=== PATIENT | male | born 1955 | race Caucasian/White ===

== ENCOUNTER 2018-08-10 14:15 | Outpatient (CLI) | payer BC, SELFPAY ==
[2018-08-10 15:27] LABS: CREATININE 1.06 mg/dL (0.70-1.30); Cholesterol 234 mg/dL (50-200); HDL Cholesterol 33 mg/dL (40-60); LDL CHOLESTEROL 171 mg/dL (<100); Potassium 4.2 mmol/L (3.5-5.1); Triglyceride 163 mg/dL (30-150)
[2018-08-14 15:15] LABS: PTH-Related Peptide 0.2 pmol/L (<2.0)
== END 2018-08-10 14:35 ==
PROVIDERS: PCP Family Medicine; Visit Provider Family Medicine
DX: I97.3 Postprocedural hypertension (principal); Z90.5 Acquired absence of kidney; E78.5 Hyperlipidemia, unspecified; E21.3 Hyperparathyroidism, unspecified
CPT/HCPCS: 36415; 80061; 83721; 82397; 82565; 84132

== ENCOUNTER 2019-08-14 01:45 | Outpatient (CLI) | payer BC, SELFPAY ==
[2019-08-14 12:07] LABS: BUN 19 mg/dL (7-18); CREATININE 1.13 mg/dL (0.70-1.30); Calcium 9.6 mg/dL (8.5-10.1); Calculated LDL 168 mg/dL; Chloride 104 mmol/L (98-107); Cholesterol 229 mg/dL (50-200); Glucose 86 mg/dL (70-100); HDL Cholesterol 37 mg/dL (40-60); Potassium 4.5 mmol/L (3.5-5.1); Sodium 140 mmol/L (136-145); Triglyceride 121 mg/dL (30-150)
[2019-08-15 09:54] LABS: PSA, Screening 1.7 ng/ml (0-4.5)
[2019-08-15 11:15] LABS: Parathyroid Hormone,Intact 173 pg/ml (19-88)
[2019-08-19 07:46] LABS: Vitamin D 25 Total 26.6 ng/ml (30-100)
== END 2019-08-14 02:05 ==
PROVIDERS: PCP Family Medicine; Visit Provider Family Medicine
DX: E21.3 Hyperparathyroidism, unspecified (principal); Z00.00 Encounter for general adult medical examination without abnormal findings; Z12.5 Encounter for screening for malignant neoplasm of prostate; E78.5 Hyperlipidemia, unspecified
CPT/HCPCS: 36415; 80048; 80061; 82306; 84153; 82040; 82310; 83970

== ENCOUNTER 2020-08-07 02:01 | Outpatient (CLI) | payer BC, SELFPAY ==
[2020-08-07 13:25] LABS: CREATININE 1.01 mg/dL (0.70-1.30); Calculated LDL 171 mg/dL (<100); Cholesterol 231 mg/dL (<200); HDL Cholesterol 41 mg/dL (40-60); Potassium 4.2 mmol/L (3.5-5.1); Triglyceride 96 mg/dL (<150)
[2020-08-07 13:37] LABS: Uric Acid 5.6 mg/dL (3.5-7.2)
== END 2020-08-07 02:21 ==
PROVIDERS: PCP Family Medicine; Visit Provider Family Medicine
DX: I10 Essential (primary) hypertension (principal); E78.5 Hyperlipidemia, unspecified; M10.9 Gout, unspecified
CPT/HCPCS: 36415; 80061; 82565; 84132; 84550

== ENCOUNTER 2021-05-15 09:52 | Inpatient (IN) | payer BC, SELFPAY ==
[2021-05-15] VITALS (93 sets, daily range): BP systolic 81–139; BP diastolic 52–102; PULSE 55–140; RESP 11–35; TEMP 36.5–36.9; O2SAT 89–100
--- NOTE | 2021-05-15 09:45 | RT.EKG_ITS ---
APPROVED REPORT Exam: Resting ECG Reason for Exam: chest pain Patient Location: E HR:129 bpm ECG Measurements Heart Rate 129 AXIS TX 117 P 228 QRSd 89 QRS -71 QT 323 T 26 QTc 474 Conclusion Sinus or ectopic atrial tachycardia...P axis (-45,135), rate> 99 Left anterior fascicular block...axis(240,-40), init forces inf Repol abnrm suggests ischemia, inferior leads...ST dep, T neg, II III aVF
[2021-05-15 10:08] LABS: Abs Immature Grans 0.02 10^3/uL (0.0-0.06); Absolute Basophil Count 0.06 10^3/uL (0.0-0.2); Absolute Eosinophil Count 0.07 10^3/uL (0.0-0.7); Absolute Lymphocyte Count 1.59 10^3/uL (1.2-3.4); Absolute Monocyte Count 0.68 10^3/uL (0.1-0.8); Absolute Neutrophil Count 5.34 10^3/uL (1.2-6.7); Basophils % 0.8; Eosinophils % 0.9; HCT 47.7 % (40.0-50.0); HGB 15.4 g/dL (13.5-17.5); Immature Grans % 0.3; Lymphocytes % 20.5; MCH 28.8 pg (27.0-33.0); MCHC 32.3 % (32.0-36.0); MCV 89.3 fL (80-95); MPV 9.8 fL (8.0-11.0); Monocytes % 8.8; Neutrophils % 68.7; Nucleated RBC 0 %; Platelet Count 282 10^3/uL (130-400); RBC 5.34 10^6/uL (4.36-5.78); RDW 13.2 % (11.8-14.1); RDW-SD 43.1 fL; WBC 7.76 10^3/uL (4.4-10.8)
[2021-05-15 10:34] LABS: ALT 23 U/L (16-63); AST 14 U/L (15-37); Albumin 4.6 g/dL (3.4-5.0); Alkaline Phosphatase 58 U/L (46-116); Anion Gap 11.3 mmol/L (3-11); BUN 20 mg/dL (7-18); Bilirubin, Total 0.6 mg/dL (0.2-1.0); CO2 25.7 mmol/L (21.0-32.0); CREATININE 1.1 mg/dL (0.70-1.30); Calcium 10.3 mg/dL (8.5-10.1); Chloride 106 mmol/L (98-107); Glucose 104 mg/dL (74-106); Magnesium 2.1 mg/dL (1.8-2.4); Potassium 3.9 mmol/L (3.5-5.1); Sodium 143 mmol/L (136-145); TSH (W/Ref FT4) 1.25 uIU/mL (0.36-3.74); Total Protein 8.3 g/dL (6.4-8.2); Troponin I < 0.05 ng/mL (<0.06)
[2021-05-15] MEDS: dilTIAZem 25 MG/5 ML VIAL 15 MG IVP (10:40)
[2021-05-15 10:41] LABS: D-Dimer 193 ng/mlFEU (<500)
[2021-05-15] MEDS: Normal Saline Flush 10 ML SYR IVP ×2 (10:41→22:28)
--- NOTE | 2021-05-15 10:43 | W.ED.GENAD ---
Discharge Plan Disposition Patient Disposition: [facility] INPATIENT Condition: Serious Discharge Details Chief Complaint: Palpitatns Clinical Impression: Atrial fibrillation with RVR, Bradycardia Primary Care Provider: Elkin Gu ED Provider: Fred Perkins Home Meds and New Rx's Prescriptions: No Action sildenafil 100 mg tablet 50 - 100 mg PO DAILY PRN (Reason: sexual activity) Qty: 90 RF: 3 diphenhydramine-acetaminophen [Tylenol PM Extra Strength] 1 EACH tablet 1 tab PO PRN RF: 0 One Daily For Men 1 EACH tablet 1 ea PO DAILY RF: 0 Shingrix Adjuvant Component-PF Suspension 0.5 ml IM DAILY Qty: 0.5 RF: 1 losartan 25 mg tablet 25 mg PO DAILY Qty: 90 RF: 3 allopurinol 100 mg tablet 200 mg PO DAILY Qty: 180 RF: 3 alendronate 70 mg tablet 70 mg PO QWEEK Qty: 12 RF: 3 ciprofloxacin HCl [Cipro] 500 mg tablet 500 mg PO BID Qty: 20 RF: 0 metronidazole 500 mg tablet 500 mg PO TID Qty: 30 RF: 0 psyllium husk 0.52 GM capsule 5 gm PO DAILY RF: 0 metoprolol tartrate 25 mg tablet 25 mg PO DAILY RF: 0 Medical Decision Making 1053?- 65-year-old male with history of atrial fibrillation, here with palpitations. Patient is tachycardic and normotensive. Saturating well in no respiratory distress. I reviewed heart monitor in the room and interpreted as follows: irregular narrow complex tachycardia, atrial fib/flutter EKG was reviewed and interpreted by me: Please see report, a flutter versus A. fib with rapid ventricular response [address] depression noted laterally. Consider ACS. Plan to obtain troponin. Consider electrolyte abnormalities and thyroid dysfunction as etiology for arrhythmia. I am concerned with episodes of bradycardia the patient noted, specifically feeling like his heart was on a roller coaster last night. This raises suspicion for sick sinus syndrome. Plan to treat with diltiazem IV push and then follow with IV infusion. Patient will require hospitalization for continued cardiac monitoring and medication adjustment. --Patient reassessed after diltiazem 15 mg bolus and heart rate improved in the 80s to 90s. BP remained stable heart rate started to increase while on diltiazem 5 mg/h infusion. I titrated this up to 7.5. Reviewed labs. Nondiagnostic. D-dimer negative. Troponin negative. I called and spoke with the patient's loom cleaner in [place], Dr. Gomes, he agrees with concern for potential sick sinus syndrome and recommends monitoring. I obtained and reviewed outside hospital records including discharge summary with consultation notes from [facility] discharge date 11/02/2020: Cardiology note does state that patient was originally on Cardizem infusion as well as metoprolol and digoxin during initial A. fib episode. I called and spoke with Dr. Montgomery discussed ED presentation course. He will admit the patient to the ICU. 1200--all results and treatment plan discussed with the patient HPI General Mode of arrival: ambulatory. Date/Time Provider Initiated Documentation: 05/15/21 09:54. Limitations to Documentation: no limitations. Information obtained by: patient. HPI Narrative: 65-year-old male with history of diverticulitis status post partial colectomy and subsequent reanastomosis earlier this spring, history of atrial fibrillation, recently diagnosed during hospitalization for colectomy, treated and typically well controlled with metoprolol 25 mg daily, presents today with chief complaint of palpitations. Patient notes last night he went out to dinner and had a single alcoholic beverage, he took his metoprolol last night as prescribed and shortly thereafter had episode of bradycardia. He states he checked his heart rate with pulse oximeter and it was in the 40s. He then noted that his heart rate became extremely fast with palpitations. He states it felt like his heart was on a roller coaster during this time. Since last night he has had persistently elevated heart rate in the 130s at home. He has associated mild shortness of breath and mild dizziness. No chest pain. No associated leg swelling or calf pain. He has had recent long distance travel. Patient notes that over the past few months since being diagnosed with atrial fibrillation he has been on consistent dosing of metoprolol. He has had a few other episodes where his heart rate was slow and also some episodes of palpitations. ?Typically the symptoms did not last more than an hour or so Patient is taking aspirin 81 mg daily as prescribed. No other anticoagulant. Related Data Home Medications Medication Instructions Recorded Confirmed One Daily For Men 1 ea PO DAILY 03/21/13 05/15/21 diphenhydramine-acetaminophen 1 tab PO PRN 03/21/13 05/15/21 [Tylenol PM Extra Strength] psyllium husk 5 gm PO DAILY 03/14/14 05/15/21 sildenafil 100 mg tablet 50 - 100 mg PO DAILY PRN #90 tab 08/13/19 05/15/21 adjuvant AS01B (PF)vial 1 of 2 0.5 ml IM DAILY #0.5 ml 11/25/19 10/13/20 losartan 25 mg tablet 25 mg PO DAILY #90 tab 07/10/20 10/13/20 allopurinol 100 mg tablet 200 mg PO DAILY #180 tab 07/14/20 05/15/21 alendronate 70 mg tablet 70 mg PO QWEEK #12 tab 08/25/20 05/15/21 ciprofloxacin HCl 500 mg tablet 500 mg PO BID #20 tab 10/27/20 metronidazole 500 mg tablet 500 mg PO TID #30 tab 10/27/20 metoprolol tartrate 25 mg PO DAILY 05/15/21 05/15/21 Previous Rx's Medication Instructions Recorded sildenafil 100 mg tablet 50 - 100 mg PO DAILY PRN #90 tab 08/13/19 adjuvant AS01B (PF)vial 1 of 2 0.5 ml IM DAILY #0.5 ml 11/25/19 losartan 25 mg tablet 25 mg PO DAILY #90 tab 07/10/20 allopurinol 100 mg tablet 200 mg PO DAILY #180 tab 07/14/20 alendronate 70 mg tablet 70 mg PO QWEEK #12 tab 08/25/20 ciprofloxacin HCl 500 mg tablet 500 mg PO BID #20 tab 10/27/20 metronidazole 500 mg tablet 500 mg PO TID #30 tab 10/27/20 Allergies Allergy/AdvReac Type Severity Reaction Status Date / Time [facility] Allergy Unknown Uncoded 05/15/21 10:01 General Stated Complaint: Palpitatns MARY: 2 Review of Systems All systems reviewed & are unremarkable except as noted in HPI and below Constitutional Constitutional: Denies fever(s) Cardiovascular Cardiovascular: Denies chest pain, Reports rapid heart rate, Reports irregular heart rhythm and Reports dyspnea Respiratory Respiratory: Reports dyspnea Gastrointestinal Gastrointestinal: Reports other (Intermittent constipation) [facility] Medical History (Updated 05/15/21 @ 12:09 by Fred Perkins MD) Atrial fibrillation Diverticulitis Diverticulosis of large intestine without hemorrhage (07/18/17) c-scope 2013 History of smoking for 6-10 years Hypertension after donor nephrectomy requiring medication Tinnitus since age 19 Surgical History (Updated 05/15/21 @ 10:51 by Fred Perkins MD) History of partial colectomy Repair of inguinal hernia 07/26/10; left 07/14-right Family History Mother , age 67 Essential hypertension Lung cancer Father , age 79 Essential hypertension Hyperlipidemia Lung cancer Sister No problems noted. Maternal Grandfather , age 81 Essential hypertension Alzheimer disease Heart disease Hyperlipidemia Paternal Grandfather , age 70 Neoplasm LUNG Maternal Grandmother , age 83 Essential hypertension Heart disease Hyperlipidemia Lung cancer Paternal Grandmother , age 93 No problems noted. Son No problems noted. Daughter No problems noted. Social History Smoking/Tobacco Use Status: Former Tobacco Use Smoking risk assessment performed?: Yes Alcohol Intake: current Alcohol Intake frequency: a few times a week Drug use: Rarely Substance use type: does not use and marijuana Caregiver/Support person: Yes Household members: spouse Housing: house Communication Needs: Hard of Hearing Do you need help understanding health information?: Never current occupation: MARKETING Pets and animals: Yes Pets and animals: dog(s) Sexually active: Yes Do you think of yourself as: straight/heterosexual Current gender identity: male What is your relationship status?: How often do you talk on the phone with friends or family?: three or more times per week How often do you get together with friends or relatives?: twice per week How often do you attend druze or buddhist services?: 4 or more times per year Do you belong to any clubs or organized social groups?: yes Panel score (0-1 are the most socially isolated patients): 4 What type of physical activity do you participate in: other Details: core, weights, aerobic Duration: 60-90 minutes/day Frequency: 3-4 times per week Radha/Congregation: Gnosticism Special radha needs: No Seatbelt use: always Drive intox or ride w/intox national dedicated truck driver: No Do you feel safe at home: Yes Do you feel safe in your relationship?: Yes Exam Const General: cooperative and no acute distress HENMT Mouth: moist mucous membranes Eyes Conjunctivae: normal conjunctivae Sclera: normal sclerae EOM: EOM intact bilaterally Neck Neck: trachea midline and supple Resp Auscultation: clear to auscultation bilaterally, no rales, no rhonchi and no wheezes Cardio Rate: regular rate and not tachycardic Rhythm: regular rhythm GI Inspection: non-distended and other (Well-healed colectomy scar and ostomy scar) Skin General skin exam: no rashes or lesions noted Neuro General: patient alert, patient awake, patient oriented x3 and tone normal Extrem General: no calf tenderness and no edema Psych Appearance: grossly normal Mental Status: mental status grossly normal Speech and Movement: speech and movement normal Course Vital Signs Vital signs: Vital Signs Temperature 36.6 C 05/15/21 09:56 Pulse 129 H 05/15/21 09:56 Respiratory Rate 16 05/15/21 09:56 Blood Pressure 139/102 H 05/15/21 09:56 Pulse Oximetry 98 05/15/21 09:56 Temperature 36.6 C 05/15/21 09:56 Temperature Source Skin 05/15/21 09:56 Pulse 127 H 05/15/21 10:40 Pulse 133 H 05/15/21 10:03 Respiratory Rate 15 05/15/21 10:03 Respiratory Effort Non-Labored 05/15/21 10:05 Blood Pressure 115/98 H 05/15/21 10:40 Blood Pressure Mean 100 05/15/21 10:03 Blood Pressure Position Supine 05/15/21 09:56 Pulse Oximetry 100 05/15/21 10:03 Oxygen Delivery Method Room Air 05/15/21 09:56 Oxygen Flow Rate 0 05/15/21 09:56 Pain Level 0 05/15/21 10:05 Lab/Test Results Lab/Test Results: Laboratory Tests Range/Units 05/15/21 05/15/21 05/15/21 10:00 10:00 10:00 WBC (4.4-10.8) 10^3/uL 7.76 RBC (4.36-5.78) 10^6/uL 5.34 Hgb (13.5-17.5) g/dL 15.4 Hct (40.0-50.0) % 47.7 MCV (80-95) fL 89.3 MCH (27.0-33.0) pg 28.8 MCHC (32.0-36.0) % 32.3 RDW (11.8-14.1) % 13.2 Plt Count (130-400) 10^3/uL 282 MPV (8.0-11.0) fL 9.8 Immature Gran % 0.3 Neutrophils % 68.7 Lymphocytes % 20.5 Monocytes % 8.8 Eosinophils % 0.9 Basophils % 0.8 Nucleated RBC % % 0 Absolute Neutrophils (1.2-6.7) 10^3/uL 5.34 Absolute Lymphocytes (1.2-3.4) 10^3/uL 1.59 Absolute Monocytes (0.1-0.8) 10^3/uL 0.68 Absolute Eosinophils (0.0-0.7) 10^3/uL 0.07 Absolute Basophils (0.0-0.2) 10^3/uL 0.06 D-Dimer (<500) ng/mlFEU 193 Sodium (136-145) mmol/L 143 Potassium (3.5-5.1) mmol/L 3.9 Chloride (98-107) mmol/L 106 Carbon Dioxide (21.0-32.0) mmol/L 25.7 Anion Gap (3-11) mmol/L 11.3 H BUN (7-18) mg/dL 20 H Creatinine (0.70-1.30) mg/dL 1.1 Estimated GFR/1.73 m2 (mL/min/1.73m2) >= 60.00 Glucose (74-106) mg/dL 104 Calcium (8.5-10.1) mg/dL 10.3 H Magnesium (1.8-2.4) mg/dL 2.1 Total Bilirubin (0.2-1.0) mg/dL 0.6 AST (15-37) U/L 14 L ALT (16-63) U/L 23 Alkaline Phosphatase (46-116) U/L 58 Troponin I (<0.06) ng/mL < 0.05 Total Protein (6.4-8.2) g/dL 8.3 H Albumin (3.4-5.0) g/dL 4.6 TSH (0.36-3.74) uIU/mL 1.25 Critical Care Time Critical Care Time Critical Care Time: Yes Total Critical Care Time: 40 Attestation: I spent greater than 40 minutes addressing this patient's immediate life threats -A. fib with AVR. Please see MDM section of note. This time was spent engaged in work directly related to the patient's care, exclusive of separate procedures, and failure to initiate these interventions would have likely resulted in clinically significant or life threatening deterioration in the patient's condition.
[2021-05-15] MEDS: dilTIAZem 125 MG in Normal Saline 100 ML IV (10:53)
[2021-05-15 11:10] LABS: Source Nasal/Nares
[2021-05-15 12:11] LABS: COVID-19 PCR Negative (Negative)
--- NOTE | 2021-05-15 13:00 | NUR.NOTE ---
Nursing Note:Information was obtained and sent to ICU from: [facility] [place] Dr. Gomes [phone] Jen Campa
[2021-05-15 13:05] LABS: Troponin I < 0.05 ng/mL (<0.06)
[2021-05-15] MEDS: Enoxaparin 40 MG/0.4 ML SYR SC (13:59)
[2021-05-15] MEDS: Aspirin 81 MG CHEW 324 MG CH (14:00)
--- NOTE | 2021-05-15 14:35 | W.PM.HP.N ---
Date of service: 05/15/21 Time of Service: 14:36 Assessment and Plan Assessment and plan (1) Atrial fibrillation with RVR: Status: Acute Assessment and plan: patient w/ prior PAF associated w/ his hemicolectomy, however, he says that it reoccurred one other time after his surgery and was evaluated by his crimp setter in [place], Dr. Ramachandran, in [place], [place]. He underwent stress MPI and echocardiogram but never had a PSG to evaluate for SAQIB. He was put on lopressor but not anticoagulated. I performed a [id number] score of 1 which is in the intermediate risk category w/ 1.3% annual risk of CVA. I explained this along w/ the physiologic and anataomical explainations for afib. I discussed w/ him in detail goals of rate vs rhythm control and anticoagulation goals. For now we will work on rate control w/ oral and iv diltiazem and put him on enoxaparin for DVT prophylaxis and oral ASA but will continue to hold discussions of predatory animal exterminator anticoagulation. I think that his PAF is likely to reoccur d/t his untreated SAQIB and therefore detention anticoagulation would be favored. He has no CHF or DM although he has HTN but he has no PVD and no hx of TIA/CVA. (2) Essential hypertension: Status: Acute Assessment and plan: will change his metoprolol to diltiazem. Will start on low dose oral diltiazem while he is on the iv diltiazem but titrate the dose upward. goal is for resting HR of 60 to 80 bpm and HR of no higher than 110's w/ activity. Review of Systems Constitutional Constitutional: Reports snoring (patient states that his has noted episodes of apnea during his sleep) Eyes Eyes: Reports system reviewed and no additional complaints, except as documented ENT Ears, Nose, Mouth, and Throat: Reports hearing loss Cardiovascular Cardiovascular: Reports chest pain, Denies chest pain with activity, Denies syncope, Reports rapid heart rate, Reports irregular heart rhythm, Reports lightheadedness, Denies dyspnea and Denies dyspnea on exertion Respiratory Respiratory: Denies dyspnea, Denies dyspnea on exertion and Reports snoring (patient states that his has noted episodes of apnea during his sleep) Gastrointestinal Gastrointestinal: Reports system reviewed and no additional complaints, except as documented Genitourinary Genitourinary: Reports system reviewed and no additional complaints, except as documented Musculoskeletal Musculoskeletal: Reports system reviewed and no additional complaints, except as documented Integumentary/Breasts Skin/Breast: Reports system reviewed and no additional complaints, except as documented Neurologic Neurologic: Reports system reviewed and no additional complaints, except as documented and Denies syncope Psychiatric Psychiatric: Reports system reviewed and no additional complaints, except as documented Endocrine Endocrine: Reports system reviewed and no additional complaints, except as documented Hematologic/Lymphatic Hematologic/Lymphatic: Reports system reviewed and no additional complaints, except as documented Allergic/Immunologic Allergic/Immunologic: Reports system reviewed and no additional complaints, except as documented [facility] Medical History (Updated 05/15/21 @ 15:13 by Nico Montgomery) Atrial fibrillation (~10/2020) noted after hemicolectomy; evaluated by crimp setter, Dr. Ramachandran in [place], [place], October 2020; had stress MPI and echocardiogram Diverticulitis Diverticulosis of large intestine without hemorrhage (07/18/17) c-scope 2013 Essential hypertension (~2005) History of smoking for 6-10 years Kidney stone (03/21/13) Tinnitus since age 19 Surgical History (Updated 05/15/21 @ 15:04 by Nico Montgomery) H/O colonoscopy (~09/14/14) 09/14/2014, Dr. Mckay Arroyo, pandiverticulosis and grade II hemorrhoids; 09/27/2010, Dr. Euceda; chandler-diverticulosis, multiple colon polyps, grade I hemorrhoids History of partial colectomy (~10/2020) [place], [place]; Dr. Thad Melvin Repair of inguinal hernia 07/26/10; left 07/14-right Status post inguinal hernia repair Family History Mother , age 67 Essential hypertension Lung cancer Father , age 79 Essential hypertension Hyperlipidemia Lung cancer Sister No problems noted. Maternal Grandfather , age 81 Essential hypertension Alzheimer disease Heart disease Hyperlipidemia Paternal Grandfather , age 70 Neoplasm LUNG Maternal Grandmother , age 83 Essential hypertension Heart disease Hyperlipidemia Lung cancer Paternal Grandmother , age 93 No problems noted. Son No problems noted. Daughter No problems noted. Social History (Updated 05/15/21 @ 14:57 by Nico Montgomery) Smoking/Tobacco Use Status: Former Tobacco Use Quit Date: 11/06/12 Tobacco: How many years used: 20 Smoking risk assessment performed?: Yes Alcohol Intake: current Alcohol Intake frequency: a few times a week Drug use: Rarely Substance use type: does not use and marijuana Caregiver/Support person: Yes Household members: spouse Housing: house Communication Needs: Hard of Hearing Do you need help understanding health information?: Never current occupation: MARKETING Pets and animals: Yes Pets and animals: dog(s) Sexually active: Yes Do you think of yourself as: straight/heterosexual Current gender identity: male What is your relationship status?: How often do you talk on the phone with friends or family?: three or more times per week How often do you get together with friends or relatives?: twice per week How often do you attend scientology or shinto services?: 4 or more times per year Do you belong to any clubs or organized social groups?: yes Panel score (0-1 are the most socially isolated patients): 4 What type of physical activity do you participate in: other Details: core, weights, aerobic Duration: 60-90 minutes/day Frequency: 3-4 times per week Radha/Latter Day: Sabianism Special radha needs: No Seatbelt use: always Drive intox or ride w/intox electric train driver: No Do you feel safe at home: Yes Do you feel safe in your relationship?: Yes Meds Allergies and Home Medications Allergies Allergy/AdvReac Type Severity Reaction Status Date / Time [facility] Allergy Unknown Uncoded 05/15/21 10:01 Home Medications Medication Instructions Recorded Confirmed Type One Daily For Men 1 ea PO DAILY 03/21/13 05/15/21 History diphenhydramine-acetaminophen 1 tab PO PRN 03/21/13 05/15/21 History [Tylenol PM Extra Strength] psyllium husk 5 gm PO DAILY 03/14/14 05/15/21 History sildenafil 100 mg tablet 50 - 100 mg PO DAILY PRN #90 tab 08/13/19 05/15/21 Rx adjuvant AS01B (PF)vial 1 of 2 0.5 ml IM DAILY #0.5 ml 11/25/19 10/13/20 Rx losartan 25 mg tablet 25 mg PO DAILY #90 tab 07/10/20 10/13/20 Rx allopurinol 100 mg tablet 200 mg PO DAILY #180 tab 07/14/20 05/15/21 Rx alendronate 70 mg tablet 70 mg PO QWEEK #12 tab 08/25/20 05/15/21 Rx ciprofloxacin HCl 500 mg tablet 500 mg PO BID #20 tab 10/27/20 Rx metronidazole 500 mg tablet 500 mg PO TID #30 tab 10/27/20 Rx metoprolol tartrate 25 mg PO DAILY 05/15/21 05/15/21 History Exam Const General: cooperative, healthy appearing, comfortable, no acute distress, well developed and well groomed Nutritional Appearance: average body habitus [facility] Head: normal to inspection, no palpable skull fracture, normocephalic and atraumatic Ears: hearing grossly normal bilaterally General nose exam: external nose normal Face and sinus: normal facial exam Mouth: oral mucosae normal Eyes General: appearance normal, both eyes and all related structures Visual Reynaga: normal visual reynaga by confrontation Alignment and Position: alignment normal Periorbital: periorbital findings normal Eyelids: eyelids normal Conjunctivae: conjunctivae normal Sclera: sclerae normal Cornea: corneas normal Pupils: PERRL EOM: EOM intact bilaterally Neck Neck: normal visual inspection, full ROM, no lymphadenopathy, trachea midline and supple Thyroid: thyroid normal Carotids: normal carotid upstroke Lymphatic: no lymphadenopathy noted Chest Chest: normal inspection of the chest Resp Effort & Inspection: normal respiratory effort and able to speak in complete sentences Auscultation: clear to auscultation bilaterally Cardio Jugular venous pressure: no JVD Palpation: normal PMI Rate: regular rate Rhythm: regular rhythm Heart Sounds: S1 normal Pulses: brachial pulses present, radial pulses present, dorsalis pedis present and normal peripheral pulses GI Inspection: scar (midline laparotomy scar well healed) Palpation: soft and no hepatosplenomegaly Percussion: normal to percussion Auscultation: normal bowel sounds Back/Spine/Pelvis Back: no CVA tenderness Cervical Spine: normal cervical lordosis Thoracic/Lumbar Spine: thoracic and lumbar spine normal to inspection Skin General skin exam: no rashes or lesions noted Neuro General: patient alert, patient awake and patient oriented x3 Cranial Nerves: CN's II-XI intact bilaterally Cognition: normal cognition Speech: speech normal Motor: muscle tone normal throughout and strength 5/5 throughout Sensory Exam: no sensory deficits noted Extrem General: normal to inspection, full ROM, capillary refill normal, no joint enlargement, no clubbing, cyanosis or edema, no pedal edema and no calf tenderness Psych Appearance: grossly normal Mental Status: mental status grossly normal Speech and Movement: speech and movement normal Mood: congruent mood Affect: normal affect Attitude: cooperative Thought Process: normal Thought Content: normal Insight: insight good Judgment: judgment good Results Labs Result diagrams: 05/15/21 10:00 05/15/21 10:00 Labs: Laboratory Results - last 24 hr 05/15/21 05/15/21 05/15/21 10:00 10:00 10:00 WBC 7.76 RBC 5.34 Hgb 15.4 Hct 47.7 MCV 89.3 MCH 28.8 MCHC 32.3 RDW 13.2 Plt Count 282 MPV 9.8 Immature Gran % 0.3 Neutrophils % 68.7 Lymphocytes % 20.5 Monocytes % 8.8 Eosinophils % 0.9 Basophils % 0.8 Nucleated RBC % 0 Absolute Neutrophils 5.34 Absolute Lymphocytes 1.59 Absolute Monocytes 0.68 Absolute Eosinophils 0.07 Absolute Basophils 0.06 D-Dimer 193 Sodium 143 Potassium 3.9 Chloride 106 Carbon Dioxide 25.7 Anion Gap 11.3 H BUN 20 H Creatinine 1.1 Estimated GFR/1.73 m2 >= 60.00 Glucose 104 Calcium 10.3 H Magnesium 2.1 Total Bilirubin 0.6 AST 14 L ALT 23 Alkaline Phosphatase 58 Troponin I < 0.05 Total Protein 8.3 H Albumin 4.6 TSH 1.25 COVID-19 Source SARS-CoV-2 (PCR) 05/15/21 05/15/21 11:08 12:45 WBC RBC Hgb Hct MCV MCH MCHC RDW Plt Count MPV Immature Gran % Neutrophils % Lymphocytes % Monocytes % Eosinophils % Basophils % Nucleated RBC % Absolute Neutrophils Absolute Lymphocytes Absolute Monocytes Absolute Eosinophils Absolute Basophils D-Dimer Sodium Potassium Chloride Carbon Dioxide Anion Gap BUN Creatinine Estimated GFR/1.73 m2 Glucose Calcium Magnesium Total Bilirubin AST ALT Alkaline Phosphatase Troponin I < 0.05 Total Protein Albumin TSH COVID-19 Source Nasal/Nares SARS-CoV-2 (PCR) Negative Last Vital Signs Temp 36.9 C 05/15/21 13:08 Pulse 136 H 05/15/21 14:01 Resp 19 05/15/21 14:01 BP 111/87 05/15/21 13:45 Pulse Ox 98 05/15/21 14:01
[2021-05-15] MEDS: dilTIAZem 30 MG TAB PO ×2 (15:50→20:16)
[2021-05-15 16:26] LABS: Troponin I < 0.05 ng/mL (<0.06)
[2021-05-15] MEDS: Pantoprazole 20 MG TABCR PO (22:00)
[2021-05-16] VITALS (50 sets, daily range): BP systolic 94–129; BP diastolic 65–84; PULSE 61–84; RESP 12–53; TEMP 36.6; O2SAT 93–99
--- NOTE | 2021-05-16 03:28 | NUR.NOTE ---
0300 Pt OOB to try and move bowels. no results. States he will probably go in the morning. states it feels good to stand up. Ambulated in room for a ffew minutes. No increase in HR with activity. HR 63 BP 104,76. No dizziness noted. States he feels great.
[2021-05-16 06:46] LABS: Hemoglobin A1C 4.9 % (<5.7)
[2021-05-16 06:50] LABS: Calculated LDL 152 mg/dL (<100); Cholesterol 205 mg/dL (<200); HDL Cholesterol 36 mg/dL (40-60); Triglyceride 86 mg/dL (<150)
[2021-05-16] MEDS: Aspirin E.C. 81 MG TABEC PO (08:55)
[2021-05-16] MEDS: dilTIAZem CD 120 MG CAPCR PO (08:55)
[2021-05-16] MEDS: Psyllium PKT 1 EACH PO (08:56)
[2021-05-16] MEDS: Allopurinol 100 MG TAB 200 MG PO (08:56)
--- NOTE | 2021-05-16 10:35 | W.PM.DS.N ---
Date of service: 05/16/21 Time of Service: 10:35 DS: Diagnosis Discharge Diagnosis (1) Atrial fibrillation with RVR: Status: Acute Asessment and Plan: stop lopressor; start diltiazem CD 120 mg daily. cont. ASA 81 mg daily. Patient is encouraged to discuss residential anticoagulation strategy w/ his PCP and w/ Dr. Parikh or Dr. Martini, garment sewer hand from [facility]. 30 day cardiac event recorder was applied at discharge to assess stability of his rhythm. Patient's already had prior ischemic workup by his garment sewer hand in [place]. TSH was checked this admission and was normal at 1.25. (2) Essential hypertension: Status: Acute Asessment and Plan: lopressor has been changed to diltiazem CD. Patient reported that he no longer takes losartan and therefore this has been taken off his home medication list. (3) Obstructive sleep apnea: Status: Suspected Asessment and Plan: patient needs follow up PSG to confirm the diagnosis and then he needs treatment w/ CPAP. I have asked the nursing staff to leave a message w/ Deborah Schmitt from the sleep lab for an outpatient appointment. Discharge Plan Disposition Patient Disposition: HOME Condition: Good Discharge Details Reason For Visit: Atrial Flutter/Atrial Fibrillation Admit Date/Time: 05/15/21 11:08 Admit Provider: Nico Montgomery Attending Provider: Nico Montgomery Primary Care Provider: Elkin Gu Hospital Course Hospital Course: 65-year-old white male with a history of essential hypertension and paroxysmal atrial fibrillation first diagnosed after he underwent a hemicolectomy for diverticulitis in October 2020 while he was in [place]. He subsequently was followed up with Dr. Ramachandran, garment sewer hand in [place], [place]. Patient's atrial fibrillation had been well controlled and maintained in sinus rhythm with low-dose Lopressor 50 mg nightly. Patient's been maintained on aspirin 81 mg daily. However patient presented emergency department with symptoms of palpitations and lightheadedness with no syncope or chest pain. ECG demonstrated regular tachycardia at rate of 129 bpm. The ER doctor called his arrhythmia as atrial fibrillation. However, my impression is that his EKG demonstrated atrial flutter. Nevertheless rhythm strips did show atrial fibrillation. Evaluation in the ER included routine labs, EKG. CBC, CMP and serial troponin I levels. All labs were unremarkable. Patient was given bolus of diltiazem and started on diltiazem drip and admitted to to the ICU overnight. His diltiazem drip was titrated up to 15 mg/hr and he was started on diltiazem 30 mg po tid. His rhythm converted to sinus rhythm overnight and he was started on diltiazem CD 120 mg daily on the day of his discharge. I had a lengthy discussion about his symptoms of sleep apnea (heavy snoring and witnessed apneic spells, witnessed by his ) and told him that he needs a sleep study. I also discussed anticoagulation for stroke prevention w/ him. I calculated his [id number] score at 1 which gives him an intermediate risk for CVA w/ annual risk of 1.3%. At present time he would like to wait and discuss buttermaker continuous churn anticoagulation w/ a local garment sewer hand and w/ his PCP. For now patient will continue his ASA 81 mg daily. Patient is being referred to Dr. Cheyenne Parikh, garment sewer hand at [facility] for follow up. He is also being referred to the Sleep Lab in [facility]. A 30 day event recorder was applied at the time of discharge to assess stability of his rhythm. Home Meds and New Rx's Prescriptions: New diltiazem HCl 120 mg Capsule,Extended Release 24hr 120 mg PO DAILY Qty: 30 RF: 1 Continued sildenafil 100 mg tablet 50 - 100 mg PO DAILY PRN (Reason: sexual activity) Qty: 90 RF: 3 diphenhydramine-acetaminophen [Tylenol PM Extra Strength] 1 EACH tablet 1 tab PO PRN RF: 0 One Daily For Men 1 EACH tablet 1 ea PO DAILY RF: 0 allopurinol 100 mg tablet 200 mg PO DAILY Qty: 180 RF: 3 alendronate 70 mg tablet 70 mg PO QWEEK Qty: 12 RF: 3 psyllium husk 0.52 GM capsule 5 gm PO DAILY RF: 0 Discontinued Shingrix Adjuvant Component-PF Suspension 0.5 ml IM DAILY Qty: 0.5 RF: 1 losartan 25 mg tablet 25 mg PO DAILY Qty: 90 RF: 3 metoprolol tartrate 25 mg tablet 25 mg PO DAILY RF: 0 Discharge Instructions Instructions: A-fib (Atrial Fibrillation) (DC), Sleep Apnea (DC), Safe Use of Anticoagulants (DC), Sleep Study (GEN) Additional Instructions: You have atrial fibrillation which has been paroxysmal (meaning intermittent). This is likely related to your sleep apnea. While we have not obtained a formal sleep study to prove sleep apnea, your symptoms are highly suspicious (heavy snoring and intermittent apneic spells). We are referring you to the Sleep Lab for an evaluation which will include a polysomnogram (sleep study). If sleep apnea is confirmed, they will discuss treatment which usually includes use of CPAP machine to keep your upper airway open and improve nocturnal oxygen levels. Your atrial fibrillation rate and rhythm has been controlled w/ diltiazem, a calcium channel jeffrey that is used for control of supraventricular arrythmias. Your rhythm is now back in sinus rhythym. You are being referred to a garment sewer hand, Dr. Cheyenne Parikh, for follow up at [facility] specialty clinic. You are also being set upf the wearing of a 30 day cardiac event recorder. This is to assess the stability of your maintenance of sinus rhythm and if you do go back into atrial fibrillation to assess for how long and for how fast. Hopefully with treatment of your sleep apnea, your atrial fibrillation will remain inactive and you will maintain sinus rhythym. Atrial fibrillation does increase a person's risks for stroke due to blood clots that can form in the heart. We discussed residential anticoagulation and your [id number] risk score is a 1 which puts you at intermediate risk for strokes. Your calculated annual risk is 1.3% based on your age, male sex and the rest of your medical profile.Your options are to remain on aspirin or start on a direct oral anticoagulant or start on warfarin. For now you should remain on aspirin but consider use of an direct oral anticoagulant (D.O.A.C.) such as Eliquis or Xarelto or Pradaxa. You should discuss the risks of anticoagulants and benefits w/ your PCP as well as your garment sewer hand. Referrals: Cheyenne Parikh MD [ [facility] STAFF PHYSICIAN] - (you should hear from the specialty clinic at [facility] in the next 2 to 3 days for an appointment w/ the garment sewer hand in the next couple of weeks) Deborah Arevalo NP [NURSE PRACTITIONER] - (you should hear from either [facility] or the sleep lab for a follow up appointment. If you do not hear from them in the next 2 to 3 days then call the office listed above for an appointment) Elkin Gu [Primary Care Provider] - (call the office tomorrow for follow up in the next week) Activity:: Activity as Tolerated Equipment/Supplies:: No Equipment Needed Diet:: Normal Diet Discharge Orders Discharge Orders: Discharge Order (Routine); Ordered 05/16/21 Ordered By: Nico Montgomery Other Ambulatory Orders: Cardiac Event Recorder (Routine) Timeframe: 1 Day Facility: [facility] - Location: Respiratory Therapy Ordered By: Nico Montgomery Discharge Data Discharge Date/Time-TO BE ENTERED AT DEPARTURE: 05/16/21 11:28 DS: Summary Time Spent with Patient providing and/or coordinating discharge services: Greater than 30 minutes Status at Discharge Functional status at discharge: independent ambulation Overall status at discharge: patient is back to baseline Mental Status: mental status grossly normal Speech and Movement: speech and movement normal Mood: congruent mood Affect: normal affect Exam Narrative Exam Narrative: Alert and oriented person place time circumstance. Currently asymptomatic. Rhythm remains normal sinus rhythm. Lungs are clear. Heart regular rate and rhythm without murmur rub or gallop. Extremities without peripheral cyanosis or edema. Patient ambulated out of the ICU and out to the medical/surgical floor while on telemetry monitoring and had no change in his heart rhythm. Rate was well controlled throughout his walk. Psych Mental Status: mental status grossly normal Speech and Movement: speech and movement normal Mood: congruent mood Affect: normal affect DS: Data Vitals/I&O Vitals and I&O: Vital Signs Temperature 36.6 C 05/16/21 07:12 Temperature Source Temporal Artery Scan 05/16/21 07:12 Pulse 72 05/16/21 09:15 Pulse 83 05/16/21 09:10 Respiratory Rate 20 05/16/21 09:15 Respiratory Effort 05/16/21 07:12 Respiratory Depth Normal 05/16/21 07:12 Respiratory Pattern Normal 05/16/21 07:12 Blood Pressure 129/82 05/16/21 09:15 Blood Pressure Mean 88 05/16/21 08:00 Blood Pressure Position Supine 05/16/21 07:12 Pulse Oximetry 97 05/16/21 08:00 Oxygen Delivery Method Room Air 05/16/21 09:15 Oxygen Flow Rate 0 05/16/21 09:15 Pain Level 0 05/16/21 07:12 Intake & Output 05/15/21 05/15/21 05/16/21 11:59 23:59 11:59 Intake Total 4 / 687.375 683.375 / 687.375 680 / 680 Output Total 1150 / 1150 450 / 450 Balance 4 / -462.625 -466.625 / -462.625 230 / 230 Weight 81.5 kg 77.5 kg Intake: IV 4 / 87.375 83.375 / 87.375 Oral 600 / 600 680 / 680 Output: Urine 1150 / 1150 450 / 450 Other: Urine Color Light Mallorie Light Mallorie Urine Appearance Clear Clear Urine Odor None None Comment voids in urinal Voiding Methods Urinal Bedside Commode Data Completed and Pending Labs on day of discharge: Labs from last 24 hours 05/16/21 05/16/21 05/15/21 06:08 06:08 16:05 D-Dimer Sodium Potassium Chloride Carbon Dioxide Anion Gap BUN Creatinine Estimated GFR/1.73 m2 Glucose Hemoglobin A1c 4.9 Calcium Magnesium Total Bilirubin AST ALT Alkaline Phosphatase Troponin I < 0.05 Total Protein Albumin Triglycerides 86 Total Cholesterol 205 H LDL Cholesterol, Calc 152 H HDL Cholesterol 36 L TSH COVID-19 Source SARS-CoV-2 (PCR) 05/15/21 05/15/21 05/15/21 12:45 11:08 10:00 D-Dimer 193 Sodium Potassium Chloride Carbon Dioxide Anion Gap BUN Creatinine Estimated GFR/1.73 m2 Glucose Hemoglobin A1c Calcium Magnesium Total Bilirubin AST ALT Alkaline Phosphatase Troponin I < 0.05 Total Protein Albumin Triglycerides Total Cholesterol LDL Cholesterol, Calc HDL Cholesterol TSH COVID-19 Source Nasal/Nares SARS-CoV-2 (PCR) Negative 05/15/21 10:00 D-Dimer Sodium 143 Potassium 3.9 Chloride 106 Carbon Dioxide 25.7 Anion Gap 11.3 H BUN 20 H Creatinine 1.1 Estimated GFR/1.73 m2 >= 60.00 Glucose 104 Hemoglobin A1c Calcium 10.3 H Magnesium 2.1 Total Bilirubin 0.6 AST 14 L ALT 23 Alkaline Phosphatase 58 Troponin I < 0.05 Total Protein 8.3 H Albumin 4.6 Triglycerides Total Cholesterol LDL Cholesterol, Calc HDL Cholesterol TSH 1.25 COVID-19 Source SARS-CoV-2 (PCR) [facility] Medical History (Updated 05/16/21 @ 12:22 by Nico Montgomery) Atrial fibrillation (~10/2020) noted after hemicolectomy; evaluated by garment sewer hand, Dr. Ramachandran in [place], [place], October 2020; had stress MPI and echocardiogram Diverticulitis Diverticulosis of large intestine without hemorrhage (07/18/17) c-scope 2013 Essential hypertension (~2005) History of smoking for 6-10 years Kidney stone (03/21/13) Tinnitus since age 19 Surgical History (Updated 05/15/21 @ 15:04 by Nico Montgomery) H/O colonoscopy (~09/14/14) 09/14/2014, Dr. Mckay Arroyo, pandiverticulosis and grade II hemorrhoids; 09/27/2010, Dr. Euceda; chandler-diverticulosis, multiple colon polyps, grade I hemorrhoids History of partial colectomy (~10/2020) [place], [place]; Dr. Thad Melvin Repair of inguinal hernia 07/26/10; left 07/14-right Status post inguinal hernia repair Family History Mother , age 67 Essential hypertension Lung cancer Father , age 79 Essential hypertension Hyperlipidemia Lung cancer Sister No problems noted. Maternal Grandfather , age 81 Essential hypertension Alzheimer disease Heart disease Hyperlipidemia Paternal Grandfather , age 70 Neoplasm LUNG Maternal Grandmother , age 83 Essential hypertension Heart disease Hyperlipidemia Lung cancer Paternal Grandmother , age 93 No problems noted. Son No problems noted. Daughter No problems noted. Social History (Updated 05/15/21 @ 14:57 by Nico Montgomery) Smoking/Tobacco Use Status: Former Tobacco Use Quit Date: 11/06/12 Tobacco: How many years used: 20 Smoking risk assessment performed?: Yes Alcohol Intake: current Alcohol Intake frequency: a few times a week Drug use: Rarely Substance use type: does not use and marijuana Caregiver/Support person: Yes Household members: spouse Housing: house Communication Needs: Hard of Hearing Do you need help understanding health information?: Never current occupation: MARKETING Pets and animals: Yes Pets and animals: dog(s) Sexually active: Yes Do you think of yourself as: straight/heterosexual Current gender identity: male What is your relationship status?: How often do you talk on the phone with friends or family?: three or more times per week How often do you get together with friends or relatives?: twice per week How often do you attend synagogue or synagogue services?: 4 or more times per year Do you belong to any clubs or organized social groups?: yes Panel score (0-1 are the most socially isolated patients): 4 What type of physical activity do you participate in: other Details: core, weights, aerobic Duration: 60-90 minutes/day Frequency: 3-4 times per week Radha/Rastafari: Mosque Special radha needs: No Seatbelt use: always Drive intox or ride w/intox warehouse associate driver: No Do you feel safe at home: Yes Do you feel safe in your relationship?: Yes
--- NOTE | 2021-06-17 10:20 | W.CARDEVENT ---
Date of service: 06/17/21 Time of Service: 10:20 Cardiac Event Recorder Referring Provider:: Val Indications:: A Cardiac Event Note: This is a 30-day event recorder order for indication of atrial fibrillation. ?The patient was in normal sinus rhythm for the majority recording with an average heart rate of 75 bpm. There was a total of 7 hours and 15 minutes of atrial fibrillation. The majority of the time in AF was spent above 100 bpm. The patient recorded 3 episodes of symptoms which correlated with atrial fibrillation. ?There were no episodes of ventricular tachycardia nor any pauses greater than 3 seconds. There was no evidence of high degree heart block.
== END 2021-05-16 11:28 | disposition home or self-care (01) | DRG 310 ==
LOC: ER 12:08 → ICU 12:25
PROVIDERS: Admitting Provider Internal Medicine; Emergency Provider Student in an Organized Health Care Education/Training Program; PCP Family Medicine; Visit Provider Internal Medicine
DX: I48.0 Paroxysmal atrial fibrillation (principal); I48.92 Unspecified atrial flutter; G47.33 Obstructive sleep apnea (adult) (pediatric); I10 Essential (primary) hypertension; K57.30 Diverticulosis of large intestine without perforation or abscess without bleeding; Z20.822 Contact with and (suspected) exposure to COVID-19; Z98.0 Intestinal bypass and anastomosis status; Z87.891 Personal history of nicotine dependence
CPT/HCPCS: 36415; 80053; 80061; 87635; 93005; 93270; 96365; 96372; 96375; 99291; J1650; 83036; 83735; 84443; 84484; 85025; 85379; 93010; 99219; 99239